=== PATIENT | female | born 1990 | race Caucasian/White ===

== ENCOUNTER 2016-07-20 13:15 | Emergency (ER) | payer OTHER ==
--- NOTE | 2016-07-25 10:00 | ER ---
ADMIT: 07/20/2016 RM/LOC: ER [facility] MR#: [id number] [address] [id number] DADA GENTILE [address] [place] [address] Emergency Room Report SEX: F AGE: 26 : 1990 DATE: 07/20/2016 ADDENDUM: CHIEF COMPLAINT: Foot pain. HISTORY OF PRESENT ILLNESS: This 26-year-old female, who did not really have a specific injury. She just remembers being up on her tippy toes at work and then she came down and twisted her foot slightly about a week ago, and it has been causing her more pain, so she came into the ER. X-ray was done, it does show mid fifth metatarsal fracture that was closed, nondisplaced. I will send her home with a postop shoe. Having her ice, use Motrin, Tylenol for pain, and follow up with her primary care physician in a couple weeks to be rechecked. CLINICAL IMPRESSION: Left foot fifth metatarsal fracture. GIULIANO Cobos / Austyn Man MD / wale JOB #: [id number] CC: Austyn Man MD, Attending Physician
== END 2016-07-20 14:55 | disposition home or self-care (01) ==
LOC: ER 13:15
DX: S92.355A Nondisplaced fracture of fifth metatarsal bone, left foot, initial encounter for closed fracture (principal); X37.1XXA Tornado, initial encounter